=== PATIENT | female | born 1995 | race Two or more races ===

== ENCOUNTER 2021-03-03 18:51 | Emergency (ER) | payer OTHER ==
[~2021-03-03] VITALS: Ht 165.1 cm; Wt 122.0 kg
[2021-03-03 18:55] VITALS: BP 143/84
[2021-03-03] MEDS ORDERED: DIPH25CA83 PO (19:17)
== END 2021-03-03 19:24 | disposition home or self-care (01) ==
LOC: ER 18:51
DX: J30.89 Other allergic rhinitis (principal)
CPT/HCPCS: 99282